=== PATIENT | female | born 2000 | race Caucasian/White ===

== ENCOUNTER 2023-03-01 19:44 | Emergency (ER) | payer OTHER, SELFPAY ==
[2023-03-01 19:54] VITALS: BP 97/52; PULSE 132; RESP 16; TEMP 37.4; O2SAT 98; BMI 20.8
--- NOTE | 2023-03-01 20:33 | ED.FEVER ---
HPI - Fever General Chief Complaint: Fever Stated Complaint: dizzy,headache Time Seen by Provider: 03/01/23 19:57 History of Present Illness HPI Narrative: This 22-year-old female comes in with her for both to be seen. They were both traveling to [facility] and had a delayed returned where they spent an extra day in [place]. They felt normal until today. This patient comes in reporting headache that is now improved. She does not have any cough, nausea, vomiting, or diarrhea. She did feel feverish but now arrives with normal temperature. She does have increased heart rate. She reports generalized aches and pains. Related Data Home Medications Medication Instructions Recorded Confirmed sertraline 25 mg tablet 25 mg PO QDAY 03/01/23 03/01/23 Allergies Allergy/AdvReac Type Severity Reaction Status Date / Time azithromycin Allergy Intermediate Rash Verified 03/01/23 18:48 Review of Systems Status of ROS Reports: 10 or more systems reviewed and unremarkable except as noted in History and below Narrative Constitutional: No weight gain or loss. Generalized aches and pains. Eyes: No discharge. No vision changes. HENT: No congestion, no sore throat, no ear pain. Cardiovascular: No chest pain, no palpitations. Respiratory: No shortness of breath, no wheezes, no cough. Gastrointestinal: No abdominal pain, no vomiting, no diarrhea. Genitourinary: No dysuria, no hematuria. Musculoskeletal: Normal range of motion. Skin: No rashes, no pruritis. Neurological: No dizziness, weakness, sensory change, speech change. Endo/Heme/Allergies: No bruising or bleeding. No polydipsia. Pysch: no suicidality, no anxiety, no insomnia. All other systems reviewed and are negative. Exam Narrative Exam Narrative: Constitutional: Well-developed, well-nourished, no acute distress. HEENT: Normocephalic, atraumatic. Neck: Normal range of motion. Nontender. Supple. Heart: Regular. No murmurs. Tachycardia. Intact distal pulses. Lungs: Clear to auscultation. No chest discomfort. No wheezes, rhonchi, or rales. Abdomen: Normal bowel sounds. Nontender. No rebound tenderness. Genitalia: Deferred. Back: No midline tenderness. Normal range of motion. Extremities: Normal range of motion. No injury. Skin: Intact. No rash. Warm. No erythema or pallor. Neurologic: No altered sensation. No weakness. Alert and oriented. Psychiatric: No suicidality. No anxiety or depression. No insomnia. Nursing notes and vitals signs are reviewed. Const Vital Signs, click to edit/add: Vital Signs - 24 hr 03/01/23 19:54 03/01/23 22:28 03/01/23 22:36 Temperature 99.3 F 98.0 F Pulse Rate [Right Pulse Oximeter] 132 H 98 Respiratory Rate 16 Blood Pressure [Right Upper Arm] 97/52 L 103/56 L Pulse Oximetry 98 100 Oxygen Delivery Method Room Air Course Vital Signs Vital signs: Initial Vital Signs Temperature 99.3 F 03/01/23 19:54 Temperature Source Oral 03/01/23 19:54 Pulse Rate 132 H 03/01/23 19:54 Respiratory Rate 16 03/01/23 19:54 Blood Pressure 97/52 L 03/01/23 19:54 Blood Pressure Mean 67 L 03/01/23 19:54 Blood Pressure Position Sitting 03/01/23 19:54 Pulse Oximetry 98 03/01/23 19:54 Oxygen Delivery Method Room Air 03/01/23 19:54 Sepsis Action Taken by Nursing No Action Required 03/01/23 19:54 Vital Signs Temperature 99.3 F 03/01/23 19:54 Pulse Rate 132 H 03/01/23 19:54 Respiratory Rate 16 03/01/23 19:54 Blood Pressure 97/52 L 03/01/23 19:54 Pulse Oximetry 98 03/01/23 19:54 Oxygen Delivery Method Room Air 03/01/23 19:54 Temperature 98.0 F 03/01/23 22:28 Pulse Rate 98 03/01/23 22:36 Respiratory Rate 16 03/01/23 19:54 Blood Pressure 103/56 L 03/01/23 22:36 Pulse Oximetry 100 03/01/23 22:36 Oxygen Delivery Method Room Air 03/01/23 19:54 MDM - Fever MDM Narrative Medical decision making narrative: This patient comes in with generalized malaise and report of fever. She arrives here with normal temperature but does have tachycardia initially. She had an IV placed where she received a L of normal saline and later another 500 mL of normal saline. She is feeling much better. Lab results returned with reassuring findings. Her lactate is in normal range and her white count also is normal. Most likely she has some viral type infection. She recently returned from vacationing in [place]. She is okay to be discharged home. I did recommend using fovl-vko-zhrpkaj medicines as needed and directed and advised her regarding signs and symptoms that would indicate need for return and re-evaluation. Lab Data Labs: Lab Results 03/01/23 03/01/23 Range/Units 20:10 21:12 WBC 9.73 (4.50-11.00) K/uL RBC 4.00 (4.00-5.20) m/uL Hgb 11.7 L (12.0-16.0) gm/dL Hct 35.7 (33.0-51.0) % MCV 89 (80-100) fL MCH 29 (26-34) pg MCHC 33 (32-36) gm/dL RDW Coeff of Siddhartha 11.5 (11.5-15.5) % Plt Count 182 (140-440) K/uL Neut % (Auto) 91.5 H (42.0-72.0) % Lymph % (Auto) 2.9 L (20-44) % [place] % (Auto) 5.1 (0.0-11.0) % Eos % (Auto) 0.0 (0.0-7.0) % Baso % (Auto) 0.2 (0.0-3.0) % Neut # (Auto) 8.90 H (1.7-7.0) K/uL Lymph # (Auto) 0.30 L (0.90-2.90) K/uL [place] # (Auto) 0.50 (0.00-0.90) K/UL Eos # (Auto) 0.00 (0.00-0.50) K/uL Baso # (Auto) 0.02 (0.00-0.30) K/uL Abs Immat Gran (auto) 0.03 (0.00-0.30) K/uL Imm/Tot Granulo (auto) 0.3 % Sodium 136 (135-149) mmol/L Potassium 3.5 L (3.6-5.1) mmol/L Chloride 104 (96-114) mmol/L Carbon Dioxide 20 (20-32) mmol/L Anion Gap 12 (7-15) mEq/L BUN 10 (5-24) mg/dL Creatinine 0.6 (0.5-1.5) mg/dL Estimated Creat Clear 110.98 Estimated GFR 130 ml/min Glucose 144 H (60-115) mg/dL Lactate 1.2 (0.5-1.9) mmol/L Calcium 8.5 (8.4-10.6) mg/dL C-Reactive Protein 1.6 H (0.5-1.0) mg/dL Discharge Plan Discharge Clinical Impression: Fever Patient Disposition: Home, Self-Care Condition: Improved Additional Instructions: Take lfzj-cob-[id number] medicines as needed and directed. Increase diet as tolerated. Follow up with MD return if worsening. Prescriptions: No Action sertraline 25 mg tablet 25 mg PO QDAY Follow Up/Referrals: Provider,Not a Local [Primary Care Provider] - Stand Alone Forms: [facility] Info Instructions
[2023-03-01] MEDS: 0.9 % SODIUM CHLORIDE 1000 ml 1,000 ML IV (21:00)
[2023-03-01 21:22] LABS: Lactate* 1.2 mmol/L (0.5-1.9)
[2023-03-01 21:31] LABS: Chloride* 104 mmol/L (96-114); Potassium* 3.5 mmol/L (3.6-5.1); Sodium* 136 mmol/L (135-149)
[2023-03-01 21:33] LABS: Creatinine* 0.6 mg/dL (0.5-1.5); Est. Creatinine Clearance* 110.98; Estimated Glomerular Filt Rate 130 ml/min
[2023-03-01 21:34] LABS: Anion Gap 12 mEq/L (7-15); Basophils Absolute Auto 0.02 K/uL (0.00-0.30); Basophils Percent Auto 0.2 % (0.0-3.0); Blood Urea Nitrogen* 10 mg/dL (5-24); Calcium* 8.5 mg/dL (8.4-10.6); Carbon Dioxide* 20 mmol/L (20-32); Glucose* 144 mg/dL (60-115); Hematocrit 35.7 % (33.0-51.0); Hemoglobin* 11.7 gm/dL (12.0-16.0); Immature Granulocytes Abs Auto 0.03 K/uL (0.00-0.30); Immature Granulocytes Pct Auto 0.3 %; Lymphocytes Percent Auto 2.9 % (20-44); Mean Corpuscular HGB Conc 33 gm/dL (32-36); Mean Corpuscular Hemoglobin 29 pg (26-34); Mean Corpuscular Volume 89 fL (80-100); Monocytes Percent Auto 5.1 % (0.0-11.0); Neutrophils Percent Auto 91.5 % (42.0-72.0); Platelet Count* 182 K/uL (140-440); RDW Coefficient of Variation % 11.5 % (11.5-15.5); White Blood Count* 9.73 K/uL (4.50-11.00)
[2023-03-01 21:35] LABS: Slide Review Reflex No
[2023-03-01 21:37] LABS: C Reactive Protein* 1.6 mg/dL (0.5-1.0)
[2023-03-01 22:28] VITALS: TEMP 36.7
[2023-03-01 22:36] VITALS: BP 103/56; PULSE 98; O2SAT 100
[2023-03-01] MEDS: 0.9 % SODIUM CHLORIDE 500 ML 500 ML IV (22:36)
[2023-03-01] MEDS: KETOROLAC 30 MG/ML inj 15 MG IVP (22:36)
== END 2023-03-01 23:04 | disposition home or self-care (01) ==
PROVIDERS: Emergency Provider Emergency Medicine Emergency Medical Services
DX: R50.9 Fever, unspecified (principal)
CPT/HCPCS: 36415; 80048; 83605; 85025; 86140; 96361; 96374; 99284; J1885; J7030; J7120

== ENCOUNTER 2024-04-15 00:52 | Emergency (ER) | payer OTHER, SELFPAY ==
[2024-04-15 00:58] VITALS: BP 116/72; PULSE 82; RESP 18; TEMP 36.9; O2SAT 99; BMI 17.7
--- NOTE | 2024-04-15 01:14 | ED_ITS ---
HPI - General Adult General Chief complaint: Abdominal Pain Stated complaint: Cramping, nausea Time Seen by Provider: 04/15/24 00:58 Source: patient Mode of arrival: ambulatory Limitations: no limitations History of Present Illness HPI narrative: 3-year-old female presents to the emergency department for evaluation of epigastric area abdominal pain for the past day and half. Intermittent, crampy in nature. Did also get her menses earlier today and has some lower pelvic cramping as well. No injury or trauma. Mildly nauseated but is holding down food and does report that she had soup, sandwich, crackers and a few snacks today. She had a normal bowel movement today. She is not having diarrhea. No fever or vomiting. No bloody stools. No dysuria. She reports that she does also have a history of PCOS. Reports that she had a questionably positive test at home a week ago but as test the next day was negative and now she has menstrual cycle. Tried taking 2 ibuprofen yesterday and her symptoms did improve, allowing her to sleep and rest. When the medication wore off, her pain returned and she did not take additional doses of the medication. She also tried a couple Tums which she did not find helpful. Significant other accompanying her reports ?GI symptoms? 3 days ago that were self-limited. Patient is not having diarrhea. She has no history of bowel obstructions or prior abdominal surgery. No prior endoscopy or colonoscopy reported. Past medical history notable for anxiety disorder. Reports that she takes sertraline but is not certain of the dose. Allergies are to azithromycin and amoxicillin. ROS is notable for the GI symptoms as above, otherwise denies times 12 systems. Related Data Home Medications ?Medication ?Instructions ?Recorded ?Confirmed sertraline 25 mg tablet 25 mg PO QDAY 03/01/23 04/15/24 Previous Rx's ?Medication ?Instructions ?Recorded ondansetron 4 mg disintegrating 4 mg PO Q6H PRN nausea and 04/15/24 tablet vomiting #10 tabs Allergies Allergy/AdvReac Type Severity Reaction Status Date / Time azithromycin Allergy Intermediate Rash Verified 04/15/24 01:01 amoxicillin Allergy Mild Hives Verified 04/15/24 01:01 [facility] Medical History (Updated 04/15/24 @ 02:33 by Casandra Carmichael MD) No significant past medical history Surgical History (Updated 04/15/24 @ 01:24 by Cholo Valencia RN) No significant past surgical history Social History Smoking Status: Never smoker Second hand tobacco smoke exposure: No How often do you have a drink containing alcohol: never AUDIT-C Alcohol total score: 0 Non-prescribed substance use: denies use Exam Const: Vital Signs, click to edit/add: Vital Signs - 24 hr 04/15/24 00:58 04/15/24 01:18 Temperature 98.5 F 98.5 F Pulse Rate [Right Pulse Oximeter] 82 Respiratory Rate 18 Blood Pressure [Ri ght Upper Arm] 116/72 Pulse Oximetry 99 Oxygen Delivery Me thod Room Air Documenting provider has reviewed patient's vital signs: yes Common normals: no apparent distress General appearance: well kempt Other: Mildly anxious but well nourished well hydrated. Good historian. HENMT: Common normals: normocephalic Head and scalp: normocephalic Face and sinus: normal facial exam Mouth: oral and palatal mucosa normal Throat: posterior oropharynx normal Eye: Common normals: conjunctivae normal General eye: normal appearance of both eyes Conjunctiva: conjunctiva(e) normal Neck & C-Spine: Common normals: full ROM and no lymphadenopathy Resp: Common normals: normal respiratory effort and clear to auscultation bilaterally Effort & inspection: able to speak in complete sentences Auscultation: clear to auscultation bilaterally Cardio: Common normals: regular rate, regular rhythm, S1 normal heart sound, S2 normal heart sound and no murmurs Rate: regular rate Rhythm: regular rhythm Heart sounds: S1 normal and S2 normal GI: Common normals: Normal to inspection, nondistended, normoactive bowel sounds present, soft to palpation, no hepatosplenomegaly and no masses Palpation: soft and no hepatosplenomegaly Other: Mildly tender to palpation of epigastrium only. No masses. Certainly no rebound tenderness or guarding. Back & Pelvis: Common normals: thoracic and lumbar spine normal to inspection Extremity: Common normals: normal to inspection, normal capillary refill and no pedal edema Neuro: Speech: speech normal Motor exam: no movement abnormalities noted Psych: Appearance: well kempt Attitude: engaged Insight: fair Judgement: fair Skin: Common normals: no rashes or lesions noted General skin exam: no rashes or lesions noted Course Course ED Course: 23-year-old female with epigastric area abdominal pain. Exam and history are quite reassuring. Differential diagnosis most likely gastroenteritis but cannot exclude gastritis, obstruction, biliary colic, gallstone, pancreatitis, constipation, gas, colitis, ectopic , other gynecological issues. Initial exam is very reassuring. There are no signs of peritonitis, I do not recommend CT scan. I have recommended some basic labs to look it pancreatic function, gallbladder, inflammatory markers, CBC, urinalysis and test. If these are suspicious within recommend we move on to imaging. If they are reassuring, would recommend symptomatic treatment. Will give Tylenol, famotidine and Zofran while we await findings to see if these are helpful. Reevaluation(s) Time of Reevaluation #1: 02:35 Reevaluation #1: Patient reports that her symptoms are no better but she has been able to tolerate a few sips. She has not had any vomiting or diarrhea here in the ED. Vitals have remained stable. She still reports epigastric area pain but no where else. Even though she does not report that her symptoms are better, she does appear more comfortable. Counseled patient that based on her labs, I do not recommend further imaging or workup at this time. She is in agreement with this. She is understanding of the rationale. I recommended more aggressive use of Tylenol and ibuprofen at home. Antacid medicines like famotidine or omeprazole once daily for the next few days. Prescription for Zofran sent to pharmacy. Would recommend that she have this on hand. We are seeing a lot of stomach flu like symptoms and symptoms tend to be lasting about 3-5 days. This was discussed. If patient has persistent pain, fevers or general worsening, I would have a low threshold for performance CT scan and repeating blood work. Discussed this with her. Reassuring negative test. Will culture urine but do not see enough evidence of infection at this time to treat. Urine does not show heavy ketones or overly concentrated urine to suggest dehydration. Vital Signs Vital signs: Initial Vital Signs Temperature 98.5 F 04/15/24 00:58 Temperature Source Temporal Artery Scan 04/15/24 00:58 Pulse Rate 82 04/15/24 00:58 Respiratory Rate 18 04/15/24 00:58 Blood Pressure 116/72 04/15/24 00:58 Blood Pressure Mean 86 04/15/24 00:58 Blood Pressure Position Sitting 04/15/24 00:58 Pulse Oximetry 99 04/15/24 00:58 Oxygen Delivery Method Room Air 04/15/24 00:58 Vital Signs Temperature 98.5 F 04/15/24 00:58 Pulse Rate 82 04/15/24 00:58 Respiratory Rate 18 04/15/24 00:58 Blood Pressure 116/72 04/15/24 00:58 Pulse Oximetry 99 04/15/24 00:58 Oxygen Delivery Method Room Air 04/15/24 00:58 Temperature 98.5 F 04/15/24 01:18 Pulse Rate 82 04/15/24 00:58 Respiratory Rate 18 04/15/24 00:58 Blood Pressure 116/72 04/15/24 00:58 Pulse Oximetry 99 04/15/24 00:58 Oxygen Delivery Method Room Air 04/15/24 00:58 Medications Administered Medications: Discontinued Medications Generic Name Dose Route Start Last Admin Trade Name Freq PRN Reason Stop Dose Admin Acetaminophen 1,000 mg 04/15/24 01:13 04/15/24 01:18 Acetaminophen 500 Mg Tablet PO 04/15/24 01:14 1,000 mg ONCE ONE Administration Famotidine 20 mg 04/15/24 01:13 04/15/24 01:18 Famotidine 20 Mg Tablet PO 04/15/24 01:14 20 mg ONCE ONE Administration Ondansetron HCl 4 mg 04/15/24 01:13 04/15/24 01:17 Ondansetron Odt 4 Mg Tab PO 04/15/24 01:14 4 mg ONCE ONE Administration Medical Decision Making Lab Data Lab results reviewed: Yes I reviewed the patient's lab results Lab results narrative: No significant leukocytosis. CRP very mildly elevated. Urinalysis is difficult to interpret due to heavy menstrual flow. Liver function tests are not suggestive of obstructive process. Lipase is normal. Labs: Lab Results 04/15/24 04/15/24 04/15/24 Range/Units 01:19 01:20 01:45 WBC 2.95 L (4.50-11.00) K/uL RBC 4.60 (4.00-5.20) m/uL Hgb 13.4 (12.0-16.0) gm/dL Hct 41.3 (33.0-51.0) % MCV 90 (80-100) fL MCH 29 (26-34) pg MCHC 32 (32-36) gm/dL RDW Coeff of Siddhartha 11.5 (11.5-15.5) % Plt Count 204 (140-440) K/uL Neut % (Auto) 49.9 (42.0-72.0) % Lymph % (Auto) 33.2 (20-44) % [place] % (Auto) 14.6 H (0.0-11.0) % Eos % (Auto) 1.7 (0.0-7.0) % Baso % (Auto) 0.3 (0.0-3.0) % Neut # (Auto) 1.50 L (1.7-7.0) K/uL Lymph # (Auto) 1.00 (0.90-2.90) K/uL [place] # (Auto) 0.40 (0.00-0.90) K/UL Eos # (Auto) 0.10 (0.00-0.50) K/uL Baso # (Auto) 0.00 (0.00-0.30) K/uL Abs Immat Gran (auto) 0.00 (0.00-0.30) K/uL Imm/Tot Granulo (auto) 0.3 % Sodium 140 (135-149) mmol/L Potassium 3.3 L (3.6-5.1) mmol/L Chloride 107 (96-114) mmol/L Carbon Dioxide 23 (20-32) mmol/L Anion Gap 10 (7-15) mEq/L BUN 8 (5-24) mg/dL Creatinine 0.6 (0.5-1.5) mg/dL Estimated Creat Clear 104.42 Estimated GFR 129 ml/min Glucose 100 (60-115) mg/dL Lactate 0.8 (0.5-1.9) mmol/L Calcium 8.4 (8.4-10.6) mg/dL Total Bilirubin < 0.1 L (0.1-1.5) mg/dL AST 21 (12-35) U/L ALT 14 (4-35) U/L Alkaline Phosphatase 56 (40-150) U/L C-Reactive Protein 2.6 H (0.5-1.0) mg/dL Total Protein 6.9 (6.0-8.3) g/dL Albumin 4.2 (3.3-5.0) g/dL Lipase 141 (23-300) U/L Urine Color Red A (Yellow) Urine Appearance Cloudy A (Clear) Urine pH 5.5 (5.0-8.5) Ur Specific Anthony <= 1.005 (1.000-1.030) Urine Protein 3+ A (Negative) Urine Glucose (UA) Negative (Negative) Urine Ketones Trace A (Negative) Urine Blood 3+ A (Negative) Urine Nitrite Positive A (Negative) Urine Bilirubin 2+ A (Negative) Urine Urobilinogen 1.0 (0.2-1.0) Ur Leukocyte Esterase Trace A (Negative) Urine RBC 50-100 A (0-2) Urine WBC 10-25 A (0-5) Ur Squamous Epith Cells Few (None-Few) Amorphous Sediment Few A (None) Urine Bacteria Moderate A (None) Urine HCG, Qual Negative (Negative) SARS-CoV-2 (PCR) Negative SARS-CoV-2 (Negative) Influenza Type A (PCR) Negative PCR FLU A (Negative) Influenza Type B (PCR) Negative PCR FLU B (Negative) RSV (PCR) Negative PCR RSV (Negative) Discharge Plan Discharge Clinical Impression: Gastroenteritis Instructions: Gastroenteritis (DC) Additional Instructions: As we discussed, your symptoms are most likely consistent with gastroenteritis, the stomach flu. Your test was negative here. Because of your menstrual cycle, is difficult to interpret the urine test but it does not seem to have a significant infection. Will culture it to be sure. Your blood work is very reassuring. There are no signs of biliary obstruction, significant infection, pancreatitis or other major issue. Symptoms tend to last 3-5 days. I recommend Tylenol 1000 mg every 6 hours and or ibuprofen 600 mg every 6 hours. You will need to re-dose as the medication wears off. I would recommend an ufax-eum-ugzhcnk antacid like famotidine or omeprazole once daily for the next 3-4 days as well. You were given a dose here in the emergency department. I will send a prescription for Zofran which is an anti nausea medicine in case you need it. You were given a dose here. Keep drinking plenty of fluid. Her symptoms should gradually improve over the next few days. As we discussed, we elected not to do a CT scan to look for more dangerous complications because of the radiation risk. Since there was no significant white count or other signs of complication, this seemed best for you. But if your symptoms worsen, pain becomes constant, you start running fevers over 100.4 or get very weak, please come back to the ED. I would want to repeat the blood work and perform a CT scan. Activity Level: Activity as Tolerated Discharge Diet: Regular Prescriptions: New ondansetron 4 mg tablet,disintegrating 4 mg PO Q6H PRN (Reason: nausea and vomiting) Qty: 10 0RF No Action sertraline 25 mg tablet 25 mg PO QDAY Follow Up/Referrals: Provider,Not a Local [Primary Care Provider] - Stand Alone Forms: [employer] Info Instructions
[2024-04-15] MEDS: ONDANSETRON ODT 4 MG TAB PO (01:17)
[2024-04-15 01:18] VITALS: TEMP 36.9
[2024-04-15] MEDS: FAMOTIDINE 20 MG TABLET PO (01:18)
[2024-04-15] MEDS: ACETAMINOPHEN 500 MG TABLET 1000 MG PO (01:18)
--- OUTSIDE RECORDS SUMMARY | 2024-04-15 01:22 | XMS_ITS | Clinical Summary ---
Author Organization [facility] Address [address] [place] [address] Care Team Providers Care Sampler First Name Role Phone Mikhail Ambrocio MD Primary Care Provider Source Comments You are receiving this document as you are listed as the primary care provider,follow-up provider, or the patient has been referred to you for consultation.This is in compliance with the Medicare and[facility] EHR Incentive Program,which states Providers who transition their patient to another setting of careor provider of care or refers their patient to another provider of care shouldprovide summary care record for each transition of care or referral. [employer] Allergies Active Allergy Reactions Criticality Noted Date Comments Amoxicillin Rash 05/25/2014 Mild on neck and cheek; [facility] Comment: Mild on neck and cheek; [facility] Reaction: Rash; [facility] Reaction Type: Unspecified; [facility] Noted: [id number] Erythromycin Hives High 03/17/2014 Erythromycin Base Hives 03/17/2014 Influenza Vac Split Quad Hives 03/17/2014 Influenza Vaccines Hives High 03/17/2014 Medications Medication Sig Dispensed Refills Start Date End Date Status ferrous gluconate (FERGON) 324 (38 Fe) MG tablet Take 1 Tablet by mouth every other day. 90 Tablet 3 03/31/2019 Active sertraline (ZOLOFT) 50 MG tablet Take 1 Tablet (50 mg) by mouth daily. 90 Tablet 1 10/24/2023 Active Active Problems Problem Noted Date Diagnosed Date Generalized anxiety disorder 10/24/2023 Seasonal affective disorder 10/24/2023 PCOS (polycystic ovarian syndrome) 05/29/2022 Encounters Date Type Department Care Team Description 04/15/2024 Nurse Triage Careline [address] [place] [address] Unassigned, Provider ABDOMINAL PAIN; Nausea from Last 3 Months Immunizations Name Administration Dates Next Due 4vHPV (Gardasil) 12/25/2012 9vHPV (Gardasil 9) 07/26/2018,12/25/2012 DTaP 12/21/2005, 2,01/07/2001,2000,0 2000 Flu Vac (3+ yrs) 03/08/2007 Flu Vac Preserv Free (3+yrs) 04/03/2011 HPV, Unspecified Formulation 12/25/2012 HepA Ped/Adol (1-18 yrs) 07/26/2018,02/14/2011 Hib/HBV 07/12/2001,2000,2000 IPV (Polio) 12/21/2005,01/07/2001,2000 ,2000 Influenza, Whole 03/08/2007 Robyn COVID-19 Vaccine 12/24/2020 MCV4 (Menactra) 07/26/2018 MMR 12/21/2005,07/12/2001 Pneumococcal 7, PED 09/24/2001, 2,01/07/2001,2000,0 2000 Polio, Unspecified Formulation 01/07/2001,2000 TDAP (ADACEL) 12/25/2012 Typhoid (Typhim Vi, IM) 07/26/2018 Varicella 02/14/2011,09/24/2001 Family History Medical History Relation Name Comments ADHD Father Anxiety Mother Depression Mother Anxiety Brother Relation Name Status Comments Father Mother Brother Social History Tobacco Use Types Packs/Day Years Used Date Smoking Tobacco: Never Alcohol Use Standard Drinks/Week Comments Never 0 (1 standard drink = 0.6 oz pur e alcohol) AUDIT-C Answer Date Recorded Frequency of Alcohol Consumption Never 03/29/2019 Average Number of Drinks Not on file 019 Frequency of Binge Drinking Not on file 110 01/2019 PHQ-2 Answer Date Recorded PHQ-2 Score 1 10/24/2023 Sex and Gender Information Value Date Recorded Sex Assigned at Not on file Gender Identity Not on file Sexual Orientation Not on file Last Filed Vital Signs Vital Sign Reading Time Taken Comments Blood Pressure 118/69 02/16/2022 1:31 PM CDT Pulse 79 02/16/2022 1:31 PM CDT Temperature 36.7 C (98.1 F) 05/14/2020 11:31 AM SENIOR [employer] Respiratory Rate 16 05/14/2020 11:3 1 AM S[employer]IOR [employer] Oxygen Saturation 92% 05/14/2020 11: 31 AM SENIOR [employer]EL[employer] Inhaled Oxygen Concentration - - Weight 46.6 kg (102 lb 12.8 oz) 02/16/2022 1:31 PM CDT Height 160 cm (5' 3) 05/14/2020 11:31 AM SENIOR [employer]EL[employer] Body Mass Index 18.21 05/14/2020 11:31 AM SENIOR [employer] DEVELOPER Plan of Treatment Upcoming Encounters Date Type Department Care Team (Late st Contact Info) Description 04/24/2024 8:40 AM SENIOR [employer] DEVELOPER [facility] [address] [facility], [address] [place] [address] [place] [address] [place] [address] [address] [place] [address] Health Maintenance Due Date Last Done Comments Cervical Cancer Screening Due 2000 Chlamydia 2000 Hep C Screening (Preventive Services) 2000 HIV Screening (Preventive Services) 2016 Adult Preventive Visit 12/05/2019 12/04/2018, 2015 DTaP/Tdap/Td (7 - Tdap) 12/25/2022 12/26/19 13, 12/21/2005, 01/28/2002, Additional history exists COVID-19 Vaccine ( - season) 2024 12/24/2020 Influenza (#1) 2024 04/03/2011, 02/18, 03/08/2007 Zoster/Shingles (1 of 2) 2050 HepB Completed 07/12/2001, 10/19, 2000 Hib Completed 07/12/2001, 10/19, 2000 Pneumococcal Aged Out 09/24/2001, 08/2001, 01/07/2001, Additional history exists No longer eligible based on patient's age to complete this topic IPV (Polio) Completed 12/21/2005, 12/20, 01/07/2001, Additional history exists Varicella Completed 02/14/2011, 09/24/2001 HPV Vaccine Completed 07/26/2018, 11/2012, 12/25/2012, Additional history exists HepA Completed 07/26/2018, 02/14/2011 MCV4 Completed 07/26/2018 RSV Aged Out No longer eligi ble based on patient's age to complete this topic Care Teams Sampler First Relationship Specialty Start Date End Date Mikhail Ambrocio MD [address] [place] [address] [address] [place] [address] PCP - General 10/24/19
--- OUTSIDE RECORDS SUMMARY | 2024-04-15 01:23 | XMS_ITS | Encounter Summary ---
Author Organization [email or web address] Address [address] [place] [address] Care Team Providers Care Collection Teller Name Role Phone Mikhail Ambrocio MD Primary Care Provider Reason for Visit * Reason Comments ABDOMINAL PAIN Nausea Encounter Details Date Type Department Care Team (Late st Contact Info) Description 04/15/2024 Nurse Triage Careline [address] [place], [place] [phone] Unassigned, Provider [address] [place] [address] ABDOMINAL PAIN; Nausea Social History Tobacco Use Types Packs/Day Years Used Date Smoking Tobacco: Never Alcohol Use Standard Drinks/Week Comments Never 0 (1 standard drink = 0.6 oz pur e alcohol) AUDIT-C Answer Date Recorded Frequency of Alcohol Consumption Never 03/29/2019 Average Number of Drinks Not on file 019 Frequency of Binge Drinking Not on file 01/2019 PHQ-2 Answer Date Recorded PHQ-2 Score 1 10/24/2023 Sex and Gender Information Value Date Recorded Sex Assigned at Not on file Gender Identity Not on file Sexual Orientation Not on file documented as of this encounter Nursing Notes * Cassie Cain - 04/15/2024 12:07 AM CST 12:07 AM Caller was transferred to a nurse. Verified patient identity: Yes with patient Situation/Background (brief explanation of current symptoms/situation): Patient having upper abdominal pain that started yesterday. Agenda nauseous, loss of appetite, body aches, chills, low grade fever. Pain comes and goes, lasting for about 5 minutes, comes back a few times an hour. No diarrhea. Patient did start her period today, patient did have a positive test last week but believes it was a false positive as the next day she tested it was negative. Reviewed with patient pertinent medical history (as it related to the call): Yes Reviewed with patient pertinent medications (as they relate to call): N/A Reviewed with patient pertinent allergies (as they relate to call): N/A Reason for Disposition [1] MILD-MODERATE pain AND [2] not relieved by antacid medicine Answer Assessment - Initial Assessment Questions 1. LOCATION: Where does it hurt? Upper abdomen 2. RADIATION: Does the pain shoot anywhere else? (e.g., chest, back) no 3. ONSET: When did the pain begin? (e.g., minutes, hours or days ago) 1pm yesterday 4. SUDDEN: Gradual or sudden onset? Sudden 5. PATTERN Does the pain come and go, or is it constant? - If it comes and goes: How long does it last? Do you have pain now? (Note: Comes and goes means the pain is intermittent. It goes away completely between bouts.) - If constant: Is it getting better, staying the same, or getting worse? (Note: Constant means the pain never goes away completely; most serious pain is constant and gets worse.) Comes and goes-has gotten worse, having the pain now 6. SEVERITY: How bad is the pain? (e.g., Scale 1-10; mild, moderate, or severe) - MILD (1-3): Doesn't interfere with normal activities, abdomen soft and not tender to touch.. - MODERATE (4-7): Interferes with normal activities or awakens from sleep, abdomen tender to touch. - SEVERE (8-10): Excruciating pain, doubled over, unable to do any normal activities. 11/27 7. RECURRENT SYMPTOM: Have you ever had this type of stomach pain before? If Yes, ask: When was the last time? and What happened that time? Had bad food poisoning last year 8. AGGRAVATING FACTORS: Does anything seem to cause this pain? (e.g., foods, stress, alcohol) When she lays on back or right side pain is worse. 9. CARDIAC SYMPTOMS: Do you have any of the following symptoms: chest pain, difficulty breathing, sweating, nausea? nausea 10. OTHER SYMPTOMS: Do you have any other symptoms? (e.g., back pain, diarrhea, fever, urination pain, vomiting) 99.7 11. : Is there any chance you are ? When was your last menstrual period? Patient did have positive test last week but next day took another test and it was negative, believes it was a false positive Protocols used: Abdominal Pain - [id number] Recommendation for patient to be seen in the next 4 hours. Patient unsure if she will go in to be seen, will talk with her and decide. Reviewed the following: It is possible that you are experiencing a harmful medical condition for which staying home is not a safe place for your symptoms. Any delay in your care such as waiting for an appointment or being seen in the wrong place could be harmful to your health. You have the right to refuse my recommendation but I need to make sure you understand. Do you understand? Yes Care advice given. All questions answered. Patient stated understanding. Advised patient/caller to call back CareLine if there are further questions or concerns or to be seen if situation becomes emergent. The CareLine is available 11/12. Cassie Pablo RN Careline 12:28 AM 04/15/2024 SFER MAN * Emmie Goss - 04/15/2024 12:05 AM CST Verified patient using 3 identifiers: Yes Caller reports the following red flag symptoms: Patient has been having abdominal pain, nausea, possible , body aches, chills and a period starting today. Plan: Transferred directly to a CareLine RN. SFER MAN documented in this encounter Plan of Treatment Upcoming Encounters Date Type Department Care Team (Late st Contact Info) Description 04/24/2024 8:40 AM TRANSFER MAN Telemedicine [address], [address] [place] [address] Soheila Lozano MD [address] [facility] [address] [place] [address] documented as of this encounter Visit Diagnoses Not on filedocumented in this encounter Care Teams Collection Teller Relationship Specialty Start Date End Date Mikhail Ambrocio MD [address] [place] [address] [address] [place] [id number] PCP - General 10/24/19 documented as of this encounter
--- OUTSIDE RECORDS SUMMARY | 2024-04-15 01:23 | XMS_ITS | Clinical Summary ---
Author Organization [facility] Address [place], [place] [address] Care Team Providers Care Merchandise Marker Name Role Phone Cara Mckoy MD Primary Care Prov ider Allergies Active Allergy Reactions Criticality Noted Date Comments Amoxicillin Rash 05/25/2014 Mild on neck and cheek; [facility] Comment: Mild on neck and cheek; [facility] Reaction: Rash; [facility] Reaction Type: Unspecified; [facility] Noted: [id number] Erythromycin Hives High 03/17/2014 Erythromycin Base Hives 03/17/2014 Influenza Virus Vaccines Hives High 03/17/2014 Unlisted Allergen (Include Detail In Comments) Hives 03/17/2014 Influenza nasal Medications Medication Sig Dispensed Refills Start Date End Date Status sertraline (ZOLOFT) 50 mg tabletIndications:Anxi ety Take 1 Tablet (50 mg) by mouth once daily. 02/18/2024 Active Active Problems Problem Noted Date Diagnosed Date Pap smear for cervical cancer screening 02/22/20 24 Overview (02/22/2024): 01/2024 NIL. Plan: Pap/HPV due 01/2027. PCOS (polycystic ovarian syndrome) 10/26/2022 Overview (10/26/2022): Dx according to patient though OBGYN Anxiety 10/26/2022 Irregular menstrual cycle 10/26/2022 Overview (10/26/2022): due to pcos Resolved Problems Problem Noted Date Diagnosed Date Resolved Date COVID-19 05/21/2019 03/07/2023 Encounters Date Type Department Care Team Description 02/18/2024 9:25 AM CDT Office Visit [facility] [address] [place] [address] Cara Mckoy MD Physical (23year old physical ); Immunization/Injecti on 02/17/2024 Travel from Last 3 Months Immunizations Name Administration Dates Next Due DTaP 12/21/2005, 2,01/07/2001,11/02,2000 HIB-HepB (Comvax) 07/12/2001,2000,09/01/19 01 HPV 9 (Gardasil 9) 07/26/2018,12/25/2012 Hepatitis A (Peds) 07/26/2018,02/14/2011 Human Papilloma Virus Vaccine 12/25/2012 Human Papilloma Virus Vaccin e, Unspecified 12/25/2012 Inactivated Polio Vaccine 12/31/2005,07/2005,01/07/2001,11/02,2000 Influenza, IIV3 (Age 6-35 mos) 04/03/2011 Influenza, IIV3 (Age >=3 years) 03/08/2007 Influenza, Whole Virus 03/08/2007 MMR 12/21/2005,07/12/2001 Meningococcal Vaccine (Menactra) 07/26/2018 Pneumococcal conj 7-Valent (Prevnar 7) 0 09/24/2001,09/21/2001,01/07/2001,11/02,2000 Polio Virus, Unspecified 01/07/2001,2000 Tdap 02/18/2024,12/25/2012 Typhoid (injectable) 07/26/2018 Varicella Vaccine 02/14/2011,09/24/2001 Family History Medical History Relation Name Comments Obesity Father Depression Mother Diabetes Paternal Grandfather Stroke Paternal Grandfather Cancer-breast No Family History Cancer-colon No Family History Relation Name Status Comments Father Alive Mother Alive Paternal Grandfather Social History Tobacco Use Types Packs/Day Years Used Date Smoking Tobacco: Never Passive Smoke Exposure: Never Smokeless Tobacco: Never Tobacco Cessation:Counseling Given: No Alcohol Use Standard Drinks/Week Comments Not Currently 0 (1 standard drink = 0.6 oz pur e alcohol) rare PHQ-2 Answer Date Recorded PHQ-2 TOTAL SCORE 2 02/18/2024 Social Connections Answer Date Recorded Do you often feel lonely or isolated from those around you? 0 07/04/2023 Financial Resource Strain Answer Date R ecorded Difficulty of Paying Living Expenses 3 07/04/2023 Difficulty of Paying Living Expenses Not on file 07/04/2023 Food Insecurity Answer Date Recorded Do you worry your food will run out before you are able to buy more? 1 07/04/2023 Transportation Needs Answer Date Record ed Does lack of transportation keep you from medica l appointments? 1 07/04/2023 Does lack of transportation keep you from work, meetings or getting things that you need? 1 07/04/2023 Housing Stability Answer Date Recorded What is your housing situation today? 1 07/04/2023 Sex and Gender Information Value Date Recorded Sex Assigned at Not on file Gender Identity Not on file Sexual Orientation Not on file Obstetrics History Last Filed Vital Signs Vital Sign Reading Time Taken Comments Blood Pressure 107/68 02/18/2024 9:21 AM CDT Pulse 83 02/18/2024 9:21 AM CDT Temperature 36.2 C (97.1 F) 07/04/2023 11:44 AM BIOLOGY TEACHER Respiratory Rate 20 10/26/2022 11:18 AM CDT Oxygen Saturation 99% 02/18/2024 9:21 AM CDT Inhaled Oxygen Concentration - - Weight 47.4 kg (104 lb 8 oz) 02/18/2024 9:21 AM CDT Height 160 cm (5' 2.99) 02/18/2024 9:21 AM CDT Body Mass Index 18.52 02/18/2024 9:21 AM CDT Plan of Treatment Health Maintenance Due Date Last Done Comments HIV for age 15-65 2015 Chlamydia for age 16-24 2016 Hepatitis C screening for age 18-79 2018 COVID-19 vaccine series ( season) 2024 12/24/2020 Influenza for age 9-49 01/20/2024 03/08/2007, 2006 BMI (ht and wt on same day) for age 18+ 02/17/2025 02/18/2024, 03/07/2023 Depression screening for age 12+ 02/17/2025 02/18/2024 Pap test for age 21-65 02/17/2027 02/18/2024 Tetanus booster 02/17/2034 02/18/2024, 12/25/2012 Pneumococcal series for age 6-64 Aged Out 09/24/2001, 09/21/2001, 01/07/2001, Additional history exists No longer eligible based on patient's age to complete this topic HPV series for age 9-26 Completed 07/27/19 19, 12/25/2012, 12/25/2012, Additional history exists Tdap Completed 02/18/2024, 12/25/2012 Procedures Procedure Name Priority Date/Time Associated Diagnosis Comments PSYCHIATRY INSTRUCTOR THIN PREP PAP - AGES 21-24 ([facility]) Routine 02/18/2024 10:53 AM CDT Cervical cancer screening from Last 3 Months Results * PSYCHIATRY INSTRUCTOR THIN PREP PAP - AGES 21-24 ([facility]) (02/18/2024 10:53 AM CDT) CLINICAL INFORMATION [facility] mimiGtxh Comment:SCREEN LMP [employer] min Comment:UNKNOWN PREV. PAP [facility] min Comment:NEVER PREV. BX [facility] min Comment:NEVER SOURCE PSYCHIATRY INSTRUCTOR [employer] min Comment:Cervix STATEMENT OF ADEQUACY [employer] [facility] min Comment: Satisfactory for evaluation. Endocervical/transformation zone component present. Age and/or menstrual status not provided INTERPRETATION/RESUL T [employer] [facility] daphneumbayden Comment: Cytology Results: Negative for intraepithelial lesion or malignancy. COMMENT [facility] min Comment: This Pap test has been evaluated with computer assisted technology. CORE JAVA ENGINEER Braxton [employer] min Comment: SXN, CT(ASCP) CT Screening location: [address] [address] THINPREP TIS PAP ALWAYS MESSAGE [facility] TriggitumbGtxh Comment: EXPLANATORY NOTE: The Pap is a screening test for cervical cancer. It is not a diagnostic test and is subject to false negative and false positive results. It is most reliable when a satisfactory sample, regularly obtained, is submitted with relevant clinical findings and history, and when the Pap result is evaluated along with historic and current clinical information. Other (Other) 02/18/2024 10: 53 AM CDT 02/19/2024 6:57 AM CDT Cara Mckoy MD PATHOLOGY/ CYTOLOGY [facility] [address] [place] [address], [facility] [address] [place] [address] from Last 3 Months Care Teams Merchandise Marker Relationship Specialty Start Date End Date Cara Mckoy MD [facility] [place] [address] PCP - General Family Practice 02/18/24
--- OUTSIDE RECORDS SUMMARY | 2024-04-15 01:23 | XMS_ITS | Encounter Summary ---
Author Organization [facility] Address [address] [place] [address] Care Team Providers Care Scan Coordinator Name Role Phone Mikhail Ambrocio MD Primary Care Provider Encounter Details Date Type Department Care Team (Late st Contact Info) Description 12/04/2018 Scanned History External to Transferred Record, Provider [facility] Social History Tobacco Use Types Packs/Day Years Used Date Smoking Tobacco: Never Assessed Sex and Gender Information Value Date Recorded Sex Assigned at Not on file Gender Identity Not on file Sexual Orientation Not on file documented as of this encounter Plan of Treatment Upcoming Encounters Date Type Department Care Team (Late Contact Info) Description 04/24/2024 8:40 AM MILL PLATFORM SUPERVISOR Telemedicine [facility] [address] [place] [address], [address] [place] [address] Soheila Lozano MD [address] [place] [address] [address] [place] [address] documented as of this encounter Visit Diagnoses Not on filedocumented in this encounter Care Teams Scan Coordinator Relationship Specialty Start Date End Date Mikhail Ambrocio MD [address] [place] [address] [address] [place] [address] PCP - General 10/24/19 documented as of this encounter
[2024-04-15 01:25] LABS: Appearance Urine Cloudy (Clear); Bilirubin Urine 2+ (Negative); Blood Urine 3+ (Negative); Color Urine Red (Yellow); Glucose Urine Negative (Negative); Ketones Urine Trace (Negative); Leukocyte Esterase Urine Trace (Negative); Nitrite Urine Positive (Negative); Protein Urine 3+ (Negative); Specific Gravity Urine <= 1.005 (1.000-1.030); pH Urine 5.5 (5.0-8.5)
[2024-04-15 01:31] LABS: Amorphous Sediment Urine Few; Bacteria Urine Moderate; RBC Urine 50-100 (0-2); Squamous Epithelial Cell Urine Few (None-Few)
[2024-04-15 01:32] LABS: Ur HCG Qualitative* Negative (Negative)
[2024-04-15 01:51] LABS: Lactate* 0.8 mmol/L (0.5-1.9)
[2024-04-15 01:53] LABS: Basophils Percent Auto 0.3 % (0.0-3.0); Eosinophils Percent Auto 1.7 % (0.0-7.0); Hematocrit 41.3 % (33.0-51.0); Hemoglobin* 13.4 gm/dL (12.0-16.0); Immature Granulocytes Pct Auto 0.3 %; Lymphocytes Percent Auto 33.2 % (20-44); Mean Corpuscular HGB Conc 32 gm/dL (32-36); Mean Corpuscular Hemoglobin 29 pg (26-34); Mean Corpuscular Volume 90 fL (80-100); Monocytes Percent Auto 14.6 % (0.0-11.0); Neutrophils Percent Auto 49.9 % (42.0-72.0); Platelet Count* 204 K/uL (140-440); RDW Coefficient of Variation % 11.5 % (11.5-15.5); White Blood Count* 2.95 K/uL (4.50-11.00)
[2024-04-15 01:54] LABS: Slide Review Reflex No
[2024-04-15 02:03] LABS: PCR FLU A Negative PCR FLU A (Negative); PCR FLU B Negative PCR FLU B (Negative); PCR RSV Negative PCR RSV (Negative); SARS PCR* Negative SARS-CoV-2 (Negative)
[2024-04-15 02:07] LABS: Albumin* 4.2 g/dL (3.3-5.0); Chloride* 107 mmol/L (96-114); Potassium* 3.3 mmol/L (3.6-5.1); Sodium* 140 mmol/L (135-149)
[2024-04-15 02:09] LABS: Creatinine* 0.6 mg/dL (0.5-1.5); Est. Creatinine Clearance* 104.42; Estimated Glomerular Filt Rate 129 ml/min
[2024-04-15 02:10] LABS: Alanine Aminotransferase* 14 U/L (4-35); Alkaline Phosphatase* 56 U/L (40-150); Anion Gap 10 mEq/L (7-15); Aspartate Amino Transferase* 21 U/L (12-35); Blood Urea Nitrogen* 8 mg/dL (5-24); Carbon Dioxide* 23 mmol/L (20-32); Glucose* 100 mg/dL (60-115); Lipase* 141 U/L (23-300); Total Protein* 6.9 g/dL (6.0-8.3)
[2024-04-15 02:11] LABS: Calcium* 8.4 mg/dL (8.4-10.6)
[2024-04-15 02:13] LABS: C Reactive Protein* 2.6 mg/dL (0.5-1.0)
[2024-04-15 02:16] LABS: Bilirubin Total* < 0.1 mg/dL (0.1-1.5)
[2024-04-15 02:35] VITALS: TEMP 36.9
[2024-04-15] MEDS: IBUPROFEN 200 MG TABLET 600 MG PO (02:35)
[2024-04-15 02:39] VITALS: BP 121/70; PULSE 79; RESP 18; TEMP 36.9; O2SAT 99
[2024-04-15 02:40] VITALS: BP 121/70; PULSE 79; RESP 18; TEMP 36.9
== END 2024-04-15 02:40 | disposition home or self-care (01) ==
PROVIDERS: Emergency Provider Family Medicine
DX: K52.9 Noninfective gastroenteritis and colitis, unspecified (principal)
CPT/HCPCS: 36415; 80053; 81001; 81003; 81025; 83605; 83690; 85025; 86140; 87086; 87631; 99283; 99284; A9270